=== PATIENT | female | born 1995 | race Caucasian/White ===

== ENCOUNTER 2017-05-17 23:03 | Emergency (ER) | payer MEDICAID ==
[~2017-05-17] VITALS: Ht 160 cm; Wt 73.5 kg
[2017-05-17 23:12] VITALS: BP 126/83
== END 2017-05-18 00:04 | disposition home or self-care (01) ==
LOC: ED 23:03
DX: Q83.1 Accessory breast (principal); J45.909 Unspecified asthma, uncomplicated

== ENCOUNTER 2017-08-07 14:39 | Emergency (ER) | payer MEDICAID ==
[~2017-08-07] VITALS: Ht 160 cm; Wt 75.0 kg
[2017-08-07 15:38] VITALS: Ht 160 cm; Wt 75.0 kg
[2017-08-07 17:58] LABS: CALCIUM 8.7 mg/dL (8.5-10.1); CHLORIDE SERUM 104 mmol/L (98-107); CREATININE SERUM 0.6 mg/dL (0.6-1.0); GFR1 > 60 mL/min; GLUCOSE SERUM 102 mg/dL (74-106); POTASSIUM SERUM 3.8 mmol/L (3.5-5.1); SODIUM SERUM 139 mmol/L (136-145)
[2017-08-07 18:03] LABS: ALBUMIN 3.8 g/dL (3.4-5.0); ALKALINE PHOSPHATASE 134 U/L (46-116); ALT/SGPT 68 U/L (14-59); AMYLASE 67 U/L (25-115); AST/SGOT 31 U/L (15-37); LIPASE 286 IU/L (73-393); TOTAL PROTEIN, SERUM 7.7 g/dL (6.4-8.2)
[2017-08-07 18:18] LABS: microscopic required? YES; urine erythrocyte NEGATIVE (NEGATIVE)
[2017-08-07 20:52] VITALS: BP 124/70
== END 2017-08-07 20:52 | disposition home or self-care (01) ==
LOC: ED 14:39
PROVIDERS: Emergency Medicine
DX: K52.9 Noninfective gastroenteritis and colitis, unspecified (principal); N39.0 Urinary tract infection, site not specified; E86.0 Dehydration; J45.909 Unspecified asthma, uncomplicated
CPT/HCPCS: 83880; 87046; 87046-59; 87804; J1885; J2405; J7030

== ENCOUNTER 2018-09-15 12:36 | Emergency (ER) | payer MEDICAID ==
[~2018-09-15] VITALS: Ht 160 cm; Wt 79.4 kg
[2018-09-15 12:46] VITALS: BP 113/70; Ht 160 cm; Wt 79.4 kg
== END 2018-09-15 15:00 | disposition home or self-care (01) ==
LOC: ED 12:36
DX: S93.401A Sprain of unspecified ligament of right ankle, initial encounter (principal); J45.909 Unspecified asthma, uncomplicated; X50.1XXA Overexertion from prolonged static or awkward postures, initial encounter; Y93.01 Activity, walking, marching and hiking; Y92.89 Other specified places as the place of occurrence of the external cause; Y99.8 Other external cause status